=== PATIENT | male | born 1990 | race Caucasian/White ===

== ENCOUNTER 2025-02-05 10:47 | Emergency (ER) | payer MEDICAID ==
[~2025-02-05] VITALS: Ht 160 cm; Wt 63.6 kg
[2025-02-05 12:28] VITALS: TEMP 98.4
[2025-02-05] MEDS ORDERED: METH-659 PO (12:51)
[2025-02-05] MEDS ORDERED: IBUP-1492 PO (12:51)
[2025-02-05 15:36] VITALS: BP 122/74; PULSE 80; RESP 16; O2SAT 100
== END 2025-02-05 15:41 | disposition home or self-care (01) ==
LOC: EMS 10:47
DX: M70.831 Other soft tissue disorders related to use, overuse and pressure, right forearm (principal); M77.9 Enthesopathy, unspecified; F12.90 Cannabis use, unspecified, uncomplicated
CPT/HCPCS: 93971; 99284; Z7502